=== PATIENT | male | born 1985 | race Caucasian/White ===

== ENCOUNTER 2022-06-06 17:53 | Emergency (ER) | payer SELFPAY ==
[2022-06-06] MEDS ORDERED: predniSONE 20 MG TAB ONE ×2 (18:14→18:16)
[2022-06-06] MEDS ORDERED: diphenhydrAMINE 25 MG CAP ONE (18:14)
== END 2022-06-06 18:20 | disposition home or self-care (01) ==
LOC: ERS 17:53
DX: R21 Rash and other nonspecific skin eruption (principal)
CPT/HCPCS: 99282; J7512